=== PATIENT | female | born 1950 | race Caucasian/White ===

== ENCOUNTER 2017-10-17 16:56 | Inpatient (IN) | payer MEDICARE, MEDICAID ==
[~2017-10-17] VITALS: Ht 157.5 cm; Wt 76.0 kg
[~2017-10-17 16:56] MED LIST: ACET-2812 PO; ASPI81TA46 PO; ATOR20TA PO; COU4T PO; FAMO20TA8 PO; LORA10TA7 PO; LOSA50TA3 PO; METO-477 PO; OMEP40CA37 PO; SYN0.088T PO; TOPI25TA15 PO
[2017-10-17 18:30] LABS: BASOPHILS # (AUTO) 0.1 X10'3 (0-0.2); EOSINOPHILS # (AUTO) 0.1 X10'3 (0-0.9); EOSINOPHILS % (AUTO) 1.9 % (0-6); HEMATOCRIT 36.4 % (35.0-45.0); LYMPHOCYTES # (AUTO) 2.3 X10'3 (1.1-4.8); LYMPHOCYTES % (AUTO) 29.9 % (21-51); MEAN CORPUSCULAR HEMOGLOBIN 31.2 PG (27.0-31.0); MEAN CORPUSCULAR HGB CONC 32.9 % (33.0-36.5); MEAN CORPUSCULAR VOLUME 94.7 FL (78-98); MONOCYTES # (AUTO) 0.4 X10'3 (0-0.9); MONOCYTES % (AUTO) 5.7 % (2-12); NEUTROPHILS # (AUTO) 4.7 X10'3 (1.8-7.7); NEUTROPHILS % (AUTO) 61.5 % (42-75); PLATELET COUNT 297 X10'3 (140-440); RED BLOOD COUNT 3.85 X10'6 (4.20-5.60); RED CELL DISTRIBUTION WIDTH 14.5 % (11.5-14.5); WHITE BLOOD COUNT 7.6 X10'3 (4.5-11.0)
[2017-10-17 18:39] LABS: PARTIAL THROMBOPLASTIN TIME 36 SECONDS (22-32); PROTHROMBIN TIME 30.1 SECONDS (9.0-12.0)
[2017-10-17 18:44] LABS: ALANINE AMINOTRANSFERASE 20 U/L (12-78); ALBUMIN 3.5 G/DL (3.4-5.0); ALKALINE PHOSPHATASE 87 IU/L (46-116); ANION GAP 8 (8-16); ASPARTATE AMINO TRANSFERASE 14 U/L (10-37); BILIRUBIN,TOTAL 0.3 MG/DL (0.1-1.0); BLOOD UREA NITROGEN 15 MG/DL (7-18); BUN/CREATININE RATIO 19.5 (6.6-38.0); CALCIUM 9.2 MG/DL (8.5-10.1); CHLORIDE 109 MMOL/L (99-107); CREATININE 0.77 MG/DL (0.40-0.90); GLUCOSE 98 MG/DL (70-104); POTASSIUM 3.8 MMOL/L (3.5-5.1); SODIUM 146 MMOL/L (135-145); TOTAL CARBON DIOXIDE 29.5 MMOL/L (24-32); eGFR 75 ML/MIN
[2017-10-17 18:49] LABS: TROPONIN I < 0.04 NG/ML (0.0-0.05)
[2017-10-17 20:25] LABS: CLARITY,URINE Clear (Clear); COLOR,URINE Yellow (Yellow); GLUCOSE, URINE Negative (Neg); KETONES,URINE Negative (Neg); LEUKOCYTE ESTERASE ,URINE Small (Neg); NITRITES, URINE Positive (Neg); OCCULT BLOOD,URINE Negative (Neg); PROTEIN,URINE Negative (Neg)
[2017-10-17 20:28] LABS: UA COLLECTION TYPE STRAIGHT CATH
[2017-10-17 20:35] LABS: BACTERIA,URINE 4+ /HPF (Neg); MUCUS STRANDS NONE SEEN /LPF (Neg); RBC,URINE NONE SEEN /HPF (0-2); SQUAMOUS EPITHELIAL CELL,UR NONE SEEN /LPF (FEW)
[2017-10-17] MEDS ORDERED: acetaminophen 325mg tablet PO PRN ×2 (21:50)
[2017-10-17] MEDS ORDERED: mag hydrox/Alum hydrox/simeth 30ml oral suspension PO PRN ×3 (21:50)
[2017-10-17] MEDS ORDERED: magnesium hydroxide 30ml (MOM) UD suspension PO PRN ×3 (21:50)
[2017-10-17] MEDS ORDERED: ondansetron/PF 4mg/2ml inj IV PRN ×3 (21:50)
[2017-10-17 22:30] VITALS: BP 168/78
[2017-10-17] MEDS: cefTRIAXone 1g/NS 100ml IVPB 100 ML IV SCH (22:41)
[2017-10-18 02:00] VITALS: BP 157/75
[2017-10-18 06:00] VITALS: BP 101/66
[2017-10-18 06:21] LABS: INR 2.2 INR; PROTHROMBIN TIME 22.3 SECONDS (9.0-12.0)
[2017-10-18] MEDS: famotidine 20mg tablet PO SCH ×2 (08:00→20:39)
[2017-10-18] MEDS ORDERED: topiramate 25mg tablet PO SCH (08:00)
[2017-10-18] MEDS: aspirin 81mg tablet.DR PO SCH (09:24)
[2017-10-18] MEDS: cefTRIAXone 1g/NS 100ml IVPB 100 ML IV SCH (09:24)
[2017-10-18] MEDS: levoTHYROXINE 112mcg tablet PO SCH (09:24)
[2017-10-18] MEDS: atorvastatin 20mg tablet PO SCH (09:24)
[2017-10-18] MEDS: pantoprazole 40mg Tablet.DR PO SCH (09:25)
[2017-10-18 10:00] VITALS: BP 124/76
[2017-10-18 15:30] VITALS: BP_SYST 118; BP_SYST 120; BP_SYST 80; BP_DIAS 57; BP_DIAS 71; BP_DIAS 76
[2017-10-18] MEDS: lactobacillus rhamnosus 10,000 MMU CELLS/CAPSULE PO SCH (17:15)
[2017-10-18 18:00] VITALS: BP 132/86
[2017-10-18] MEDS ORDERED: topiramate 100mg tablet PO SCH (20:00)
[2017-10-18] MEDS ORDERED: topiramate 25mg tablet PO ONE (20:15)
[2017-10-18] MEDS: losartan 50mg tablet PO SCH (20:40)
[2017-10-18] MEDS: warfarin 4mg tablet PO SCH (20:40)
[2017-10-18] MEDS ORDERED: diphenhydrAMINE 25mg capsule PO ONE (21:40)
[2017-10-18 23:00] VITALS: BP 124/77
[2017-10-19] VITALS (25 sets, daily range): BP systolic 77–152; BP diastolic 54–91
[2017-10-19] MEDS: acetaminophen 325mg tablet PO PRN ×3 (02:43→22:56)
[2017-10-19 06:50] LABS: INR 1.5 INR; PROTHROMBIN TIME 15.4 SECONDS (9.0-12.0)
[2017-10-19] MEDS: aspirin 81mg tablet.DR PO SCH (09:01)
[2017-10-19] MEDS: famotidine 20mg tablet PO SCH ×2 (09:01→20:58)
[2017-10-19] MEDS: lactobacillus rhamnosus 10,000 MMU CELLS/CAPSULE PO SCH ×2 (09:01→16:35)
[2017-10-19] MEDS: atorvastatin 20mg tablet PO SCH (09:01)
[2017-10-19] MEDS: pantoprazole 40mg Tablet.DR PO SCH (09:01)
[2017-10-19] MEDS: levoTHYROXINE 112mcg tablet PO SCH (09:02)
[2017-10-19] MEDS: topiramate 25mg tablet PO SCH ×2 (09:02→20:57)
[2017-10-19] MEDS: cefTRIAXone 1g/NS 100ml IVPB 100 ML IV SCH (09:04)
[2017-10-19] MEDS ORDERED: normal saline 1000ml 1,000 ML IV ONE (11:00)
[2017-10-19] MEDS ORDERED: normal saline 500ml IV soln 1,000 ML IV ONE (12:40)
[2017-10-19] MEDS: metoprolol tartrate 25mg tablet PO SCH ×2 (14:41→20:58)
[2017-10-19] MEDS ORDERED: DULO-31 PO (14:47)
[2017-10-19] MEDS ORDERED: PROC-8 PO (15:49)
[2017-10-19 20:27] LABS: CLARITY,URINE Cloudy (Clear); COLOR,URINE Yellow (Yellow); GLUCOSE, URINE Negative (Neg); KETONES,URINE Negative (Neg); LEUKOCYTE ESTERASE ,URINE Large (Neg); NITRITES, URINE Negative (Neg); OCCULT BLOOD,URINE Negative (Neg); PH,URINE 7.5 (4.8-8.0); PROTEIN,URINE Negative (Neg); UROBILINOGEN,URINE 0.2 E.U/dL (0.2-1.0)
[2017-10-19 20:28] LABS: UA COLLECTION TYPE NON-SPECIFIED
[2017-10-19 20:34] LABS: BACTERIA,URINE 3+ /HPF (Neg); RBC,URINE NONE SEEN /HPF (0-2); SQUAMOUS EPITHELIAL CELL,UR FEW /LPF (FEW); WBC,URINE 20-30 /HPF (0-4)
[2017-10-19] MEDS: losartan 50mg tablet PO SCH (20:58)
[2017-10-19] MEDS: fludrocortisone acetate 0.1mg tablet PO SCH (20:59)
[2017-10-19] MEDS: warfarin 4mg tablet PO SCH (20:59)
[2017-10-20] VITALS (8 sets, daily range): BP systolic 126–154; BP diastolic 73–90
[2017-10-20 07:07] LABS: BASOPHILS % (AUTO) 0.4 % (0-1); EOSINOPHILS # (AUTO) 0.1 X10'3 (0-0.9); EOSINOPHILS % (AUTO) 0.9 % (0-6); HEMATOCRIT 36.2 % (35.0-45.0); LYMPHOCYTES # (AUTO) 1.5 X10'3 (1.1-4.8); LYMPHOCYTES % (AUTO) 20.2 % (21-51); MEAN CORPUSCULAR HEMOGLOBIN 31.1 PG (27.0-31.0); MEAN CORPUSCULAR HGB CONC 33.1 % (33.0-36.5); MEAN CORPUSCULAR VOLUME 94.1 FL (78-98); MEAN PLATELET VOLUME 8.3 FL (7.4-10.4); MONOCYTES # (AUTO) 0.5 X10'3 (0-0.9); MONOCYTES % (AUTO) 6.4 % (2-12); NEUTROPHILS # (AUTO) 5.2 X10'3 (1.8-7.7); NEUTROPHILS % (AUTO) 72.1 % (42-75); PLATELET COUNT 270 X10'3 (140-440); RED BLOOD COUNT 3.85 X10'6 (4.20-5.60); RED CELL DISTRIBUTION WIDTH 14.6 % (11.5-14.5); WHITE BLOOD COUNT 7.2 X10'3 (4.5-11.0)
[2017-10-20 07:30] LABS: INR 1.4 INR; PROTHROMBIN TIME 14.8 SECONDS (9.0-12.0)
[2017-10-20 07:48] LABS: ALANINE AMINOTRANSFERASE 24 U/L (12-78); ALBUMIN 3.2 G/DL (3.4-5.0); ALKALINE PHOSPHATASE 86 IU/L (46-116); ANION GAP 7 (8-16); ASPARTATE AMINO TRANSFERASE 15 U/L (10-37); BILIRUBIN,TOTAL 0.4 MG/DL (0.1-1.0); BLOOD UREA NITROGEN 7 MG/DL (7-18); BUN/CREATININE RATIO 10.8 (6.6-38.0); CALCIUM 9.5 MG/DL (8.5-10.1); CHLORIDE 110 MMOL/L (99-107); CREATININE 0.65 MG/DL (0.40-0.90); GLUCOSE 114 MG/DL (70-104); POTASSIUM 3.8 MMOL/L (3.5-5.1); SODIUM 144 MMOL/L (135-145); TOTAL CARBON DIOXIDE 26.7 MMOL/L (24-32); TOTAL PROTEIN 6.5 G/DL (6.4-8.2); eGFR > 90 ML/MIN
[2017-10-20] MEDS: metoprolol tartrate 25mg tablet PO SCH (08:00)
[2017-10-20] MEDS ORDERED: CefTRIAXone 1 gm/50ml D5W ADV 50 ML IV ONE (09:05)
[2017-10-20] MEDS: famotidine 20mg tablet PO SCH ×2 (09:16→20:03)
[2017-10-20] MEDS: levoTHYROXINE 112mcg tablet PO SCH (09:16)
[2017-10-20] MEDS: aspirin 81mg tablet.DR PO SCH (09:16)
[2017-10-20] MEDS: atorvastatin 20mg tablet PO SCH (09:16)
[2017-10-20] MEDS: fludrocortisone acetate 0.1mg tablet PO SCH ×2 (09:17→20:02)
[2017-10-20] MEDS: topiramate 25mg tablet PO SCH ×2 (09:17→20:02)
[2017-10-20] MEDS ORDERED: normal saline 1000ml 1,000 ML IV ONE (09:30)
[2017-10-20] MEDS: lactobacillus rhamnosus 10,000 MMU CELLS/CAPSULE PO SCH ×2 (09:34→16:28)
[2017-10-20] MEDS: pantoprazole 40mg Tablet.DR PO SCH (09:34)
[2017-10-20] MEDS: acetaminophen 325mg tablet PO PRN (16:28)
[2017-10-20] MEDS: warfarin 4mg tablet PO SCH (20:02)
[2017-10-20] MEDS: losartan 50mg tablet PO SCH (20:03)
[2017-10-21 06:00] VITALS: BP 129/84
[2017-10-21 07:07] LABS: INR 1.5 INR; PROTHROMBIN TIME 15.3 SECONDS (9.0-12.0)
[2017-10-21] MEDS: atorvastatin 20mg tablet PO SCH (07:46)
[2017-10-21] MEDS: levoTHYROXINE 112mcg tablet PO SCH (07:46)
[2017-10-21] MEDS: famotidine 20mg tablet PO SCH ×2 (07:46→20:42)
[2017-10-21] MEDS: aspirin 81mg tablet.DR PO SCH (07:47)
[2017-10-21] MEDS: lactobacillus rhamnosus 10,000 MMU CELLS/CAPSULE PO SCH ×2 (07:47→17:33)
[2017-10-21] MEDS: topiramate 25mg tablet PO SCH ×2 (07:47→20:44)
[2017-10-21] MEDS: CefTRIAXone 1 gm/50ml D5W ADV 50 ML IV SCH (07:47)
[2017-10-21] MEDS: pantoprazole 40mg Tablet.DR PO SCH (07:47)
[2017-10-21] MEDS: fludrocortisone acetate 0.1mg tablet PO SCH ×2 (07:51→20:43)
[2017-10-21] MEDS: acetaminophen 325mg tablet PO PRN ×2 (07:58→08:45)
[2017-10-21 08:00] VITALS: BP_SYST 122; BP_SYST 137; BP_SYST 152; BP_DIAS 79; BP_DIAS 87; BP_DIAS 92
[2017-10-21] MEDS ORDERED: proCHLORperazine 10mg tablet PO PRN (08:05)
[2017-10-21] MEDS: duloxetine 30mg CAPSULE.DR PO SCH (08:45)
[2017-10-21] MEDS ORDERED: SUMAtriptan succ. 6 MG/0.5ml vial SQ ONE (10:15)
[2017-10-21 11:00] VITALS: BP 152/92
[2017-10-21 18:00] VITALS: BP 108/71
[2017-10-21 20:00] VITALS: BP_SYST 121; BP_SYST 122; BP_SYST 131; BP_DIAS 72; BP_DIAS 80; BP_DIAS 86
[2017-10-21] MEDS: warfarin 4mg tablet PO SCH (20:42)
[2017-10-21] MEDS: losartan 50mg tablet PO SCH (20:43)
[2017-10-21 22:00] VITALS: BP 122/80
[2017-10-22 05:54] VITALS: BP 113/70
[2017-10-22 06:09] LABS: INR 1.4 INR; PROTHROMBIN TIME 14.7 SECONDS (9.0-12.0)
[2017-10-22 06:20] LABS: ALANINE AMINOTRANSFERASE 21 U/L (12-78); ALBUMIN 3.3 G/DL (3.4-5.0); ALKALINE PHOSPHATASE 81 IU/L (46-116); ANION GAP 10 (8-16); ASPARTATE AMINO TRANSFERASE 13 U/L (10-37); BILIRUBIN,TOTAL 0.4 MG/DL (0.1-1.0); BLOOD UREA NITROGEN 14 MG/DL (7-18); BUN/CREATININE RATIO 16.9 (6.6-38.0); CALCIUM 9.4 MG/DL (8.5-10.1); CHLORIDE 108 MMOL/L (99-107); CREATININE 0.83 MG/DL (0.40-0.90); GLUCOSE 122 MG/DL (70-104); POTASSIUM 3.3 MMOL/L (3.5-5.1); SODIUM 144 MMOL/L (135-145); TOTAL CARBON DIOXIDE 25.6 MMOL/L (24-32); TOTAL PROTEIN 6.6 G/DL (6.4-8.2); eGFR 69 ML/MIN
[2017-10-22] MEDS: lactobacillus rhamnosus 10,000 MMU CELLS/CAPSULE PO SCH ×2 (07:44→17:36)
[2017-10-22] MEDS: pantoprazole 40mg Tablet.DR PO SCH (07:44)
[2017-10-22] MEDS: fludrocortisone acetate 0.1mg tablet PO SCH ×2 (07:44→19:56)
[2017-10-22] MEDS: aspirin 81mg tablet.DR PO SCH (07:44)
[2017-10-22] MEDS: levoTHYROXINE 112mcg tablet PO SCH (07:44)
[2017-10-22] MEDS: atorvastatin 20mg tablet PO SCH (07:45)
[2017-10-22] MEDS: famotidine 20mg tablet PO SCH ×2 (07:45→19:56)
[2017-10-22] MEDS: duloxetine 30mg CAPSULE.DR PO SCH (07:45)
[2017-10-22] MEDS: topiramate 25mg tablet PO SCH ×2 (07:45→19:56)
[2017-10-22] MEDS: CefTRIAXone 1 gm/50ml D5W ADV 50 ML IV SCH (07:50)
[2017-10-22] MEDS ORDERED: magnesium 4gm in 100ml NS 100 ML IV PRN (08:45)
[2017-10-22] MEDS ORDERED: magnesium 2GM in 50ml NS 50 ML IV PRN (08:45)
[2017-10-22] MEDS ORDERED: potassium Cl 40MEQ/NS 500ml 500 ML IV PRN ×2 (08:45)
[2017-10-22] MEDS ORDERED: potassium Cl 20 mEq SR tablet PO PRN (08:45)
[2017-10-22] MEDS ORDERED: magnesium Cl slow-release 64mg tablet PO PRN (08:45)
[2017-10-22] MEDS: potassium Cl 20 mEq SR tablet PO PRN ×3 (09:56→19:07)
[2017-10-22 10:00] VITALS: BP_SYST 124; BP_SYST 127; BP_SYST 95; BP_DIAS 69; BP_DIAS 79; BP_DIAS 87
[2017-10-22] MEDS: SUMAtriptan 25 MG tablet PO PRN (10:09)
[2017-10-22] MEDS: metoprolol succinate 25mg (24-HOUR) SR. Tablet PO SCH (15:45)
[2017-10-22 18:00] VITALS: BP 127/85
[2017-10-22] MEDS: losartan 50mg tablet PO SCH (19:56)
[2017-10-22] MEDS ORDERED: warfarin 4mg tablet PO ONE (21:00)
[2017-10-22 22:21] VITALS: BP 116/75
[2017-10-23] MEDS: SUMAtriptan 25 MG tablet PO PRN ×2 (04:55→23:18)
[2017-10-23 06:00] VITALS: BP 125/77
[2017-10-23 06:27] LABS: INR 1.7 INR; PROTHROMBIN TIME 16.8 SECONDS (9.0-12.0)
[2017-10-23 06:28] LABS: MAGNESIUM 1.9 MG/DL (1.5-2.4); POTASSIUM 3.6 MMOL/L (3.5-5.1)
[2017-10-23] MEDS: levoTHYROXINE 112mcg tablet PO SCH (08:23)
[2017-10-23] MEDS: famotidine 20mg tablet PO SCH ×2 (08:23→19:26)
[2017-10-23] MEDS: lactobacillus rhamnosus 10,000 MMU CELLS/CAPSULE PO SCH ×2 (08:24→17:10)
[2017-10-23] MEDS: pantoprazole 40mg Tablet.DR PO SCH (08:24)
[2017-10-23] MEDS: metoprolol succinate 25mg (24-HOUR) SR. Tablet PO SCH (08:24)
[2017-10-23] MEDS: topiramate 25mg tablet PO SCH ×2 (08:24→19:26)
[2017-10-23] MEDS: atorvastatin 20mg tablet PO SCH (08:24)
[2017-10-23] MEDS: duloxetine 30mg CAPSULE.DR PO SCH (08:24)
[2017-10-23] MEDS: aspirin 81mg tablet.DR PO SCH (08:24)
[2017-10-23] MEDS: fludrocortisone acetate 0.1mg tablet PO SCH ×2 (08:24→19:26)
[2017-10-23] MEDS: CefTRIAXone 1 gm/50ml D5W ADV 50 ML IV SCH (08:25)
[2017-10-23 11:00] VITALS: BP 103/62
[2017-10-23 18:48] VITALS: BP 105/65
[2017-10-23 19:55] VITALS: BP 97/55
[2017-10-23] MEDS: losartan 50mg tablet PO SCH (20:14)
[2017-10-23] MEDS ORDERED: warfarin 4mg tablet PO ONE (21:00)
[2017-10-23 22:13] VITALS: BP 126/79
[2017-10-24 06:07] LABS: BASOPHILS % (AUTO) 0.7 % (0-1); EOSINOPHILS # (AUTO) 0.2 X10'3 (0-0.9); EOSINOPHILS % (AUTO) 2.6 % (0-6); HEMATOCRIT 33.2 % (35.0-45.0); LYMPHOCYTES # (AUTO) 1.7 X10'3 (1.1-4.8); LYMPHOCYTES % (AUTO) 26.5 % (21-51); MEAN CORPUSCULAR VOLUME 93.9 FL (78-98); MEAN PLATELET VOLUME 7.7 FL (7.4-10.4); MONOCYTES # (AUTO) 0.6 X10'3 (0-0.9); MONOCYTES % (AUTO) 9.8 % (2-12); NEUTROPHILS % (AUTO) 60.4 % (42-75); PLATELET COUNT 261 X10'3 (140-440); RED BLOOD COUNT 3.54 X10'6 (4.20-5.60); RED CELL DISTRIBUTION WIDTH 14.7 % (11.5-14.5); WHITE BLOOD COUNT 6.6 X10'3 (4.5-11.0)
[2017-10-24 06:08] LABS: INR 2.2 INR; PROTHROMBIN TIME 22.3 SECONDS (9.0-12.0)
[2017-10-24 06:32] VITALS: BP 122/66
[2017-10-24 06:45] LABS: ALANINE AMINOTRANSFERASE 30 U/L (12-78); ALBUMIN 2.9 G/DL (3.4-5.0); ALBUMIN/GLOBULIN RATIO 0.9 (1.1-1.5); ALKALINE PHOSPHATASE 81 IU/L (46-116); ANION GAP 8 (8-16); ASPARTATE AMINO TRANSFERASE 23 U/L (10-37); BILIRUBIN,TOTAL 0.3 MG/DL (0.1-1.0); BLOOD UREA NITROGEN 14 MG/DL (7-18); BUN/CREATININE RATIO 19.7 (6.6-38.0); CHLORIDE 110 MMOL/L (99-107); CREATININE 0.71 MG/DL (0.40-0.90); GLUCOSE 94 MG/DL (70-104); POTASSIUM 3.4 MMOL/L (3.5-5.1); SODIUM 145 MMOL/L (135-145); TOTAL CARBON DIOXIDE 27.2 MMOL/L (24-32); eGFR 82 ML/MIN
[2017-10-24] MEDS: fludrocortisone acetate 0.1mg tablet PO SCH (07:29)
[2017-10-24] MEDS: lactobacillus rhamnosus 10,000 MMU CELLS/CAPSULE PO SCH ×2 (07:29→07:37)
[2017-10-24] MEDS: duloxetine 30mg CAPSULE.DR PO SCH (07:29)
[2017-10-24] MEDS: famotidine 20mg tablet PO SCH (07:29)
[2017-10-24] MEDS: pantoprazole 40mg Tablet.DR PO SCH (07:29)
[2017-10-24] MEDS: metoprolol succinate 25mg (24-HOUR) SR. Tablet PO SCH (07:29)
[2017-10-24] MEDS: CefTRIAXone 1 gm/50ml D5W ADV 50 ML IV SCH (07:30)
[2017-10-24] MEDS: aspirin 81mg tablet.DR PO SCH (07:30)
[2017-10-24] MEDS: atorvastatin 20mg tablet PO SCH (07:30)
[2017-10-24] MEDS: levoTHYROXINE 112mcg tablet PO SCH (07:30)
[2017-10-24] MEDS: topiramate 25mg tablet PO SCH (07:30)
[2017-10-24] MEDS ORDERED: SUMA25TA9 PO (16:09)
[2017-10-24] MEDS ORDERED: FLO0.1T PO (16:23)
[2017-10-24] MEDS ORDERED: LEVO500T89 PO (16:23)
[2017-10-24] MEDS ORDERED: warfarin 5mg tablet PO ONE (21:00)
== END 2017-10-24 17:15 | disposition home or self-care (01) | DRG 74 ==
LOC: ER 16:57 → ED HOLD 21:46 → ORTHO 4S 22:30
PROVIDERS: ADMIT Family Medicine; ATTEND Family Medicine
DX: G90.8 Other disorders of autonomic nervous system (principal); E03.9 Hypothyroidism, unspecified; N39.0 Urinary tract infection, site not specified; I95.1 Orthostatic hypotension; K58.0 Irritable bowel syndrome with diarrhea; I10 Essential (primary) hypertension; B96.20 Unspecified Escherichia coli [E. coli] as the cause of diseases classified elsewhere; E78.00 Pure hypercholesterolemia, unspecified; E78.5 Hyperlipidemia, unspecified; G43.009 Migraine without aura, not intractable, without status migrainosus; I25.10 Atherosclerotic heart disease of native coronary artery without angina pectoris; F32.9 Major depressive disorder, single episode, unspecified; K21.9 Gastro-esophageal reflux disease without esophagitis; Z90.710 Acquired absence of both cervix and uterus; Z90.49 Acquired absence of other specified parts of digestive tract; Z88.2 Allergy status to sulfonamides; Z88.8 Allergy status to other drugs, medicaments and biological substances; Z79.82 Long term (current) use of aspirin; Z79.899 Other long term (current) drug therapy; Z86.711 Personal history of pulmonary embolism; Z86.718 Personal history of other venous thrombosis and embolism; Z86.73 Personal history of transient ischemic attack (TIA), and cerebral infarction without residual deficits
CPT/HCPCS: 36415; 70450; 70551; 71010; 80053; 81001; 82948; 83735; 84132; 84443; 84484; 85025; 85610; 85730; 87070; 87077; 87088; 87186; 93005; 93306; 93660; 93880; 99285; J0696; J2405; J3030; J7030; Q0163; Q0164

== ENCOUNTER 2020-02-17 18:07 | Emergency (ER) | payer MEDICARE, MEDICAID ==
[~2020-02-17] VITALS: Ht 157.5 cm; Wt 86.4 kg
[~2020-02-17 18:07] MED LIST changes: -ACET-2812 PO; +ACET-3055 PO; +ASPI81TA44 PO; -ASPI81TA46 PO; +DULO-31 PO; +FLO0.1T PO; +OMEP40CA13 PO; -OMEP40CA37 PO; +PROC-8 PO; +SUMA25TA9 PO
[2020-02-17] MEDS ORDERED: ondansetron/PF 4mg/2ml inj IV ONE (18:25)
[2020-02-17] MEDS ORDERED: fentaNYL/PF 50MCG/1 ML 2ML syringe IV ONE ×3 (18:25→19:20)
[2020-02-17] MEDS ORDERED: normal saline 1000ML IV soln IVB ONE (18:25)
[2020-02-17] MEDS ORDERED: AMOX-117 PO (18:58)
[2020-02-17] MEDS ORDERED: HYDR-3965 PO (19:08)
[2020-02-17 19:10] LABS: BASOPHILS # (AUTO) 0.1 X10'3 (0-0.2); EOSINOPHILS # (AUTO) 0.1 X10'3 (0-0.9); HEMATOCRIT 40.1 % (35.0-45.0); HEMOGLOBIN 13.5 g/dl (12.0-16.0); LYMPHOCYTES # (AUTO) 2.2 X10'3 (1.1-4.8); LYMPHOCYTES % (AUTO) 25.4 % (21-51); MEAN CORPUSCULAR HEMOGLOBIN 32.8 PG (27.0-31.0); MEAN CORPUSCULAR HGB CONC 33.6 g/dL (33.0-36.5); MEAN CORPUSCULAR VOLUME 97.7 FL (78-98); MEAN PLATELET VOLUME 7.7 FL (7.4-10.4); MONOCYTES # (AUTO) 0.6 X10'3 (0-0.9); MONOCYTES % (AUTO) 7.4 % (2-12); NEUTROPHILS # (AUTO) 5.6 X10'3 (1.8-7.7); NEUTROPHILS % (AUTO) 65.2 % (42-75); PLATELET COUNT 343 X10'3 (140-440); RED CELL DISTRIBUTION WIDTH 13.6 % (11.5-14.5); WHITE BLOOD COUNT 8.6 X10'3 (4.5-11.0)
[2020-02-17] MEDS ORDERED: TRAM50TA2 PO (19:19)
[2020-02-17 19:20] LABS: ALANINE AMINOTRANSFERASE 20 U/L (12-78); ALBUMIN 3.3 G/DL (3.4-5.0); ALBUMIN/GLOBULIN RATIO 0.9 (1.1-1.5); ALKALINE PHOSPHATASE 111 IU/L (46-116); ANION GAP 9 (8-16); ASPARTATE AMINO TRANSFERASE 18 U/L (10-37); BILIRUBIN,TOTAL 0.5 MG/DL (0.1-1.0); BLOOD UREA NITROGEN 14 MG/DL (7-18); BUN/CREATININE RATIO 16.5 (6.6-38.0); CALCIUM 8.8 MG/DL (8.5-10.1); CHLORIDE 105 MMOL/L (99-107); CREATININE 0.85 MG/DL (0.40-0.90); GLUCOSE 100 MG/DL (70-104); LIPASE < 50 U/L (73-393); POTASSIUM 4.1 MMOL/L (3.5-5.1); SODIUM 140 MMOL/L (135-145); TOTAL CARBON DIOXIDE 25.8 MMOL/L (24-32); TOTAL PROTEIN 6.9 G/DL (6.4-8.2); eGFR 67 ML/MIN
[2020-02-17] MEDS ORDERED: traMADol 50MG tablet PO ONE (19:20)
[2020-02-17 19:23] LABS: CLARITY,URINE CLOUDY (Clear); COLOR,URINE YELLOW (Yellow); GLUCOSE, URINE NEGATIVE (Neg); KETONES,URINE NEGATIVE (Neg); LEUKOCYTE ESTERASE ,URINE MODERATE (Neg); NITRITES, URINE POSITIVE (Neg); OCCULT BLOOD,URINE NEGATIVE (Neg); PROTEIN,URINE NEGATIVE (Neg); UROBILINOGEN,URINE 0.2 E.U/dL (0.2-1.0)
[2020-02-17 19:24] LABS: UA COLLECTION TYPE CLN CATCH MIDSTREAM
[2020-02-17 19:29] LABS: BACTERIA,URINE 4+ /HPF (Neg); MUCUS STRANDS MODERATE /LPF (Neg); RBC,URINE NONE SEEN /HPF (0-2); RENAL CELLS, URINE FEW /HPF; SQUAMOUS EPITHELIAL CELL,UR MODERATE /LPF (FEW); TRANSITIONAL EPI CELLS,URINE FEW /HPF; WBC,URINE 50-100 /HPF (0-4)
[2020-02-17 20:00] VITALS: BP 149/83
== END 2020-02-17 20:02 | disposition home or self-care (01) ==
LOC: ER 18:08
DX: N20.0 Calculus of kidney (principal); K57.92 Diverticulitis of intestine, part unspecified, without perforation or abscess without bleeding; N39.0 Urinary tract infection, site not specified; R10.32 Left lower quadrant pain; E78.00 Pure hypercholesterolemia, unspecified; I10 Essential (primary) hypertension; E03.9 Hypothyroidism, unspecified; F32.9 Major depressive disorder, single episode, unspecified; Z86.73 Personal history of transient ischemic attack (TIA), and cerebral infarction without residual deficits; Z86.711 Personal history of pulmonary embolism; Z90.49 Acquired absence of other specified parts of digestive tract; Z90.710 Acquired absence of both cervix and uterus; Z88.5 Allergy status to narcotic agent; Z88.2 Allergy status to sulfonamides; Z88.8 Allergy status to other drugs, medicaments and biological substances; Z79.01 Long term (current) use of anticoagulants; Z79.82 Long term (current) use of aspirin; Z79.899 Other long term (current) drug therapy
CPT/HCPCS: 36415; 74176; 80053; 81001; 83605; 83690; 85025; 87088; 96374; 96375; 99284; J2405; J3010; J7030; 87077; 87186

== ENCOUNTER 2020-02-19 14:28 | Emergency (ER) | payer MEDICARE, MEDICAID ==
[~2020-02-19] VITALS: Ht 157.5 cm; Wt 88.2 kg
[~2020-02-19 14:28] MED LIST changes: +AMOX-117 PO; +TRAM50TA2 PO
[2020-02-19] MEDS ORDERED: fentaNYL/PF 50MCG/1 ML 2ML syringe IV ONE (15:05)
[2020-02-19] MEDS ORDERED: ondansetron/PF 4mg/2ml inj IV ONE (15:05)
[2020-02-19] MEDS ORDERED: normal saline 1000ML IV soln IV ONE (15:05)
[2020-02-19 15:19] LABS: BASOPHILS # (AUTO) 0.1 X10'3 (0-0.2); BASOPHILS % (AUTO) 0.6 % (0-1); EOSINOPHILS # (AUTO) 0.1 X10'3 (0-0.9); EOSINOPHILS % (AUTO) 0.6 % (0-6); HEMATOCRIT 40.1 % (35.0-45.0); HEMOGLOBIN 13.5 g/dl (12.0-16.0); LYMPHOCYTES # (AUTO) 1.4 X10'3 (1.1-4.8); MEAN CORPUSCULAR HEMOGLOBIN 32.8 PG (27.0-31.0); MEAN CORPUSCULAR HGB CONC 33.6 g/dL (33.0-36.5); MEAN CORPUSCULAR VOLUME 97.4 FL (78-98); MEAN PLATELET VOLUME 7.6 FL (7.4-10.4); MONOCYTES # (AUTO) 0.4 X10'3 (0-0.9); MONOCYTES % (AUTO) 4.4 % (2-12); NEUTROPHILS # (AUTO) 8.2 X10'3 (1.8-7.7); NEUTROPHILS % (AUTO) 80.4 % (42-75); PLATELET COUNT 358 X10'3 (140-440); RED BLOOD COUNT 4.12 X10'6 (4.20-5.60); RED CELL DISTRIBUTION WIDTH 13.6 % (11.5-14.5); WHITE BLOOD COUNT 10.2 X10'3 (4.5-11.0)
[2020-02-19 15:36] LABS: ALANINE AMINOTRANSFERASE 19 U/L (12-78); ALBUMIN 3.1 G/DL (3.4-5.0); ALBUMIN/GLOBULIN RATIO 0.9 (1.1-1.5); ALKALINE PHOSPHATASE 110 IU/L (46-116); AMYLASE 39 U/L (25-115); ANION GAP 5 (8-16); ASPARTATE AMINO TRANSFERASE 14 U/L (10-37); BILIRUBIN,TOTAL 0.3 MG/DL (0.1-1.0); BLOOD UREA NITROGEN 11 MG/DL (7-18); BUN/CREATININE RATIO 14.9 (6.6-38.0); CALCIUM 8.9 MG/DL (8.5-10.1); CHLORIDE 110 MMOL/L (99-107); CREATININE 0.74 MG/DL (0.40-0.90); GLUCOSE 110 MG/DL (70-104); LIPASE < 50 U/L (73-393); POTASSIUM 4.2 MMOL/L (3.5-5.1); SODIUM 141 MMOL/L (135-145); TOTAL CARBON DIOXIDE 26.3 MMOL/L (24-32); TOTAL PROTEIN 6.5 G/DL (6.4-8.2); eGFR 78 ML/MIN
[2020-02-19] MEDS ORDERED: ciprofloxacin lact 400MG/200ML 200 ML IV STA (16:21)
[2020-02-19] MEDS ORDERED: TRAM50TA2 PO (16:24)
[2020-02-19] MEDS ORDERED: ONDA4TAB6 PO (16:24)
[2020-02-19] MEDS ORDERED: CIPR-230 PO (16:24)
[2020-02-19 17:30] VITALS: BP 125/74
[2020-02-19 18:30] LABS: CLARITY,URINE CLEAR (Clear); COLOR,URINE YELLOW (Yellow); GLUCOSE, URINE NEGATIVE (Neg); KETONES,URINE NEGATIVE (Neg); LEUKOCYTE ESTERASE ,URINE NEGATIVE (Neg); NITRITES, URINE NEGATIVE (Neg); OCCULT BLOOD,URINE NEGATIVE (Neg); PH,URINE 6.5 (4.8-8.0); PROTEIN,URINE NEGATIVE (Neg); UROBILINOGEN,URINE 0.2 E.U/dL (0.2-1.0)
[2020-02-19 18:40] LABS: UA COLLECTION TYPE CLN CATCH MIDSTREAM
== END 2020-02-19 17:59 | disposition home or self-care (01) ==
LOC: ER 14:29
DX: K57.32 Diverticulitis of large intestine without perforation or abscess without bleeding (principal); R19.7 Diarrhea, unspecified; I10 Essential (primary) hypertension; E78.00 Pure hypercholesterolemia, unspecified; E03.9 Hypothyroidism, unspecified; F32.9 Major depressive disorder, single episode, unspecified; Z86.73 Personal history of transient ischemic attack (TIA), and cerebral infarction without residual deficits; Z86.711 Personal history of pulmonary embolism; Z88.0 Allergy status to penicillin; Z88.2 Allergy status to sulfonamides; Z88.8 Allergy status to other drugs, medicaments and biological substances; Z79.2 Long term (current) use of antibiotics; Z79.82 Long term (current) use of aspirin; Z79.01 Long term (current) use of anticoagulants; Z79.899 Other long term (current) drug therapy
CPT/HCPCS: 36415; 71045; 80053; 81003; 82150; 83605; 83690; 84145; 85025; 87040; 96361; 96365; 96375; 99284; J0744; J2405; J3010; J7030